=== PATIENT | male | born 1985 | race American Indian/Alaskan Native ===

== ENCOUNTER 2018-06-11 13:13 | Emergency (ER) | payer OTHER ==
[2018-06-11 14:30] VITALS: BMI 23.0
[2018-06-11 14:33] VITALS: RESP 18; TEMP 98.7; O2SAT 99
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
[2018-06-11 16:52] VITALS: BP 136/75; PULSE 88
== END 2018-06-11 16:30 | disposition home or self-care (01) ==
LOC: ED 13:13
DX: S13.4XXA Sprain of ligaments of cervical spine, initial encounter (principal); T14.8XXA Other injury of unspecified body region, initial encounter; V49.9XXA Car occupant (driver) (passenger) injured in unspecified traffic accident, initial encounter